=== PATIENT | female | born 1995 | race African-American/Black ===

== ENCOUNTER 2017-11-24 09:52 | Emergency (ER) | payer BC ==
[~2017-11-24] VITALS: Ht 157.5 cm; Wt 53.0 kg
[2017-11-24 09:54] VITALS: BP 114/62; PULSE 107; RESP 14; TEMP 99.8; O2SAT 98
[2017-11-24 10:29] LABS: BILIRUBIN, URINE NEG (NEG); BLOOD, URINE NEG (NEG); GLUCOSE,URINE NEG (NEG); HYALINE CAST, URINE 1 /lpf (RARE); KETONE, URINE 10 mg/dL (NEG); MUCUS URINE FEW /lpf (OCC); NITRITE,URINE NEG (NEG); PH, URINE 5.5 (5.0-8.5); SQUAMOUS EPITHELIAL CELL URINE 4 /hpf (0-5); URINE COLOR YELLOW (YELLW/STRAW); URINE LEUKOCYTE ESTERASE NEG (NEG)
--- NOTE | 2017-11-24 10:44 | PD ---
HPI Chief Complaint: GI Complaint Time Seen by Provider: 10:33 Travel History International Travel<30 days: No Contact w/Intl Traveler<30days: No Traveled to known affect area: No History of Present Illness HPI The patient was seen and examined in the presence of the nurse. This patient complains of both bilateral pelvic pain as well as vomiting and diarrhea. Duration 15 hours. Severity is moderate. No alleviating factors. She denies respiratory symptoms. No exacerbating factors. PFSH Past Medical History Medical History: Denies Significant Hx Tetanus Vaccination: > 5 Years Influenza Vaccination: Yes ?: Not LMP: 11/08/17 Past Surgical History Surgical History: No Previous Surgery Social History Alcohol Use: No Tobacco Use: No Substance Use: No Allergies-Medications (Allergen,Severity, Reaction): Coded Allergies: azithromycin (Verified Allergy, Intermediate, rash, 11/24/17) sulfamethoxazole (Verified Allergy, Intermediate, rash, 11/24/17) trimethoprim (Verified Allergy, Intermediate, rash, 11/24/17) Reported Meds & Prescriptions Reported Meds & Active Scripts Active Zofran (Ondansetron HCl) 4 Mg Tab 4 Mg PO Q6HR PRN Review of Systems General / Constitutional: No: Fever Eyes: No: Visual changes HENT: No: Headaches Cardiovascular: No: Chest Pain or Discomfort Respiratory: No: Shortness of Breath Gastrointestinal: Positive: Nausea, Vomiting, Diarrhea, Abdominal Pain Genitourinary: Positive: Pelvic Pain, No: Dysuria Musculoskeletal: No: Pain Skin: No Rash Neurologic: No: Weakness Psychiatric: No: Depression Endocrine: No: Polydipsia Hematologic/Lymphatic: No: Easy Bruising Physical Exam Narrative GENERAL: Well-nourished, well-developed patient in no apparent distress. SKIN: Focused skin assessment reveals no rash and nodules. Skin is Warm and dry. HEAD: Atraumatic. Normocephalic. EYES: Pupils equal and round. No scleral icterus. No injection or drainage. ENT: No nasal bleeding or discharge. Mucous membranes pink and moist. NECK: Trachea midline. No JVD. CARDIOVASCULAR: Regular rate and rhythm. No murmur appreciated. RESPIRATORY: No accessory muscle use. Clear to auscultation. Breath sounds equal bilaterally. GASTROINTESTINAL: Abdomen soft, non-tender, nondistended. Hepatic and splenic margins not palpable. MUSCULOSKELETAL: No obvious deformities. No clubbing. No cyanosis. No edema. NEUROLOGICAL: Awake and alert. No obvious cranial nerve deficits. Motor grossly within normal limits. Normal speech. PSYCHIATRIC: Appropriate mood and affect; insight and judgment normal. Pelvic: Data Data Last Documented VS Vital Signs Date Time Temp Pulse Resp B/P (MAP) Pulse Ox O2 Delivery O2 Flow Rate FiO2 11/24/17 10:34 18 11/24/17 09:54 99.8 107 114/62 (79) 98 Orders Orders Urinalysis - C+S If Indicated (11/24/17 10:05) Ed Urine Pregnancytest Poc (11/24/17 10:05) Labs Laboratory Tests Test 11/24/17 10:07 Urine Color YELLOW Urine Turbidity CLEAR Urine pH 5.5 Urine Specific [place] 1.027 Urine Protein TRACE mg/dL Urine Glucose (UA) NEG mg/dL Urine Ketones 10 mg/dL Urine Occult Blood NEG Urine Nitrite NEG Urine Bilirubin NEG Urine Urobilinogen LESS THAN 2.0 MG/DL Urine Leukocyte Esterase NEG Urine RBC 1 /hpf Urine WBC 2 /hpf Urine Squamous Epithelial Cells 4 /hpf Urine Hyaline Casts 1 /lpf Urine Mucus FEW /lpf Microscopic Urinalysis Comment CULT NOT INDICATED MDM Medical Decision Making Medical Screen Exam Complete: Yes Emergency Medical Condition: Yes Medical Record Reviewed: Yes Differential Diagnosis Ectopic, gastroenteritis, colitis, pid Narrative Course I have reviewed the patient's electronic medical record. Urinalysis is normal Urine is negative I think this patient most likely has a viral gastroenteritis. She has soft benign nontender abdomen with normal pelvic exam I don't think emergent intra-abdominal injury imaging is indicated Zofran prescribed Additional Instructions: The patient was advised to follow up with their physician and return if they worsen. I have recommended clear liquids for 24 hours, then gradually advance as tolerated. Med/Other Pt SpecificInfo: Prescription(s) given Scripts Ondansetron (Zofran) 4 Mg Tab 4 MG PO Q6HR Y for NAUSEA OR VOMITING, #12 TAB 0 Refills Prov: Reid Carter MD 11/24/17 Disposition: 01 DISCHARGE HOME Condition: Stable Reid Carter MD Nov 24, 2017 10:44
[2017-11-24] MEDS ORDERED: ZOFR4TAB PO (11:40)
== END 2017-11-24 12:20 | disposition home or self-care (01) ==
LOC: NEPD 09:52
DX: R10.2 Pelvic and perineal pain (principal); R19.7 Diarrhea, unspecified
CPT/HCPCS: 81001; 84703; 99283